=== PATIENT | male | born 1945 | race Caucasian/White ===

== ENCOUNTER → 2017-03-01 | Outpatient (CLI) | payer OTHER, MEDICARE ==
[~2017-03-01] MED LIST: ASPEC325 PO; CHOL100010 PO; CILO50TA9 PO; GLC500 PO; HYDR12.55 PO; SIMV20TA2 PO; TAMS0.4C38 PO; ZNT/150 PO
--- NOTE | 2017-03-01 10:34 | DIAGNOSTIC IMAGING REPORT ---
TWO VIEW CHEST CLINICAL HISTORY: COPD and asthma. FINDINGS: PA and lateral chest radiographs are compared to study dated 02/04/2012 and correlated with chest CT scans dated 04/18/2016 and 01/07/2012. The heart is top normal for projection and there is atherosclerotic calcification of the thoracic aorta. Advanced emphysema, chronic interstitial thickening, and apical scarring are similar to previous. Nodularity and fibrosis the right lung base is similar to previous. There is a small left pleural effusion with left basilar opacities. No pneumothorax is seen. The skeletal structures are osteopenic. The bony thorax appears intact. IMPRESSION: 1. There is a small left pleural effusion with left basilar opacities which could represent atelectasis versus pneumonia. Clinical correlation will be required. This is new from prior studies and radiographic follow-up to resolution is recommended. 2. Advanced emphysema, apical sparring, and fibrotic change at the right lung base are similar to previous. Electronically signed by: Yogesh Vazquez M.D. 03/01/2017 10:33 AM Dictated Date/Time: 03/01/2017 10:30 AM
== END | disposition home or self-care (01) ==
LOC: C.RAD1850 10:01
PROVIDERS: ATTEND Physician Assistant
DX: J44.9 Chronic obstructive pulmonary disease, unspecified (principal); R09.89 Other specified symptoms and signs involving the circulatory and respiratory systems; J90 Pleural effusion, not elsewhere classified; R91.8 Other nonspecific abnormal finding of lung field

== ENCOUNTER → 2017-04-15 | Outpatient (CLI) | payer OTHER, MEDICARE ==
[~2017-04-15] MED LIST changes: +OPTIRAY 320 IV PRN
--- NOTE | 2017-04-15 16:23 | DIAGNOSTIC IMAGING REPORT ---
ABD/PELVIS IV AND ORAL CONT CT DOSE: HISTORY: Colon carcinoma COLON CA TECHNIQUE: Multiaxial CT images of the abdomen and pelvis were performed following the use of intravenous and oral contrast. A dose lowering technique was utilized adhering to the principles of ALARA. COMPARISON STUDY: 1123 2 and 16 FINDINGS: Unchanging millimeter nodule anterior aspect right middle lobe. Unchanged 4 cm centrally calcified density right lung base. Mild scattered basilar regions of pleural thickening considered stable. There are several hypodensities within the liver considered stable compared to at least [address] exams[address] Spleen is uniform. Somewhat nodular pleural thickening adjacent to the left lateral gastric angle unchanged compared to prior exams. Postoperative changes consistent with a right hemicolectomy are again noted. Bowel pattern is considered nonobstructive. Findings of mild residual colonic diverticulosis. There is no evidence for acute diverticulitis. There is atherosclerotic change and ectasia abdominal aorta. Kidneys demonstrate several stable nonobstructing calcifications bilaterally. There is no evidence renal hydronephrosis. There is no significant abdominal or pelvic adenopathy. Osseous structures show moderate degenerative change stable compared to the prior exam. No lytic or blastic process. IMPRESSION: 1. Stable exam compared to the prior study. 2. Stable right basilar pulmonary nodules and densities as described. 3. Nephrolithiasis unchanged and considered nonobstructive. 4. Several hepatic hypodensities are unchanged and considered benign. 5. Stable postoperative changes of a prior right hemicolectomy. 6. No evidence for metastatic disease The above report was generated using voice recognition software. It may contain grammatical, syntax or spelling errors. Electronically signed by: Tay Alvarez M.D. 04/15/2017 4:22 PM Dictated Date/Time: 04/15/2017 4:16 PM
--- NOTE | 2017-04-15 16:27 | DIAGNOSTIC IMAGING REPORT ---
CT OF THE CHEST WITH IV CONTRAST CLINICAL HISTORY: COLON CA COMPARISON STUDY: 04/18/2016 TECHNIQUE: Following the IV administration of 115 mL of Optiray-320, CT of the thorax was performed from the thoracic inlet to the lung bases. Images are reviewed in the axial, sagittal, and coronal planes. IV contrast was administered without complication. A dose lowering technique was utilized adhering to the principles of ALARA. CT DOSE: 807.62 mGy.cm FINDINGS: Thyroid: There is a 3 mm left lobe thyroid nodule. Thoracic aorta: Atheromatous changes are present within the thoracic aorta. There is no aneurysmal dilatation Pulmonary vasculature: The pulmonary trunk is normal in caliber. There are no central filling defects identified to suggest pulmonary embolus. Note that this examination was not protocoled for the evaluation of pulmonary emboli. HEART: There are coronary artery calcifications present. Lungs and pleural spaces: . There is moderately severe pulmonary emphysema. There is a stable 9 mm right middle lobe pulmonary nodule. There is a persistent masslike right lower lobe airspace opacity measuring 4.8 cm in diameter. There is a loculated left lateral pleural fluid. There is a stable 7 mm nodule within the left lung base pleural fat. Mediastinum: There is no mediastinal lymphadenopathy. There are multiple mediastinal and chest wall collateral vessels. 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 Georgie: Clear. Axilla: Clear. Upper abdomen: There is a subtle 1 cm hypodensity within the right hepatic lobe. This remain stable Skeletal structures: There are no lytic or blastic osseous lesions. IMPRESSION: 1. Severe pulmonary emphysema 2. Stable 9 mm right middle lobe pulmonary nodule 3. Stable 5 cm right lower lobe opacity containing areas of calcification 4. Extensive left chest wall and mediastinal venous collaterals. This could indicate a left subclavian or axillary vein occlusion. 5. Stable 7 mm nodule within the left lung base pleural fat. There is adjacent loculated pleural fluid. Electronically signed by: Juan Carlos Bower M.D. 04/15/2017 4:26 PM Dictated Date/Time: 04/15/2017 4:14 PM
== END | disposition home or self-care (01) ==
LOC: C.CTS 15:30
PROVIDERS: ATTEND Nurse Practitioner Family
DX: J43.9 Emphysema, unspecified (principal); R91.1 Solitary pulmonary nodule; C18.9 Malignant neoplasm of colon, unspecified